=== PATIENT | male | born 1955 | race Caucasian/White ===

== ENCOUNTER → 2016-10-12 | Day surgery (SDC) | payer BC | END | disposition home or self-care (01) | LOC: SDCH 08:52 | DX: Z12.11 Encounter for screening for malignant neoplasm of colon (principal); K63.5 Polyp of colon; K57.30 Diverticulosis of large intestine without perforation or abscess without bleeding; Z86.010 Personal history of colon polyps; Z90.89 Acquired absence of other organs; Z86.69 Personal history of other diseases of the nervous system and sense organs | CPT/HCPCS: J2704 ==